=== PATIENT | female | born 1965 ===

== ENCOUNTER 2023-01-31 10:36 | Emergency (ER) | payer OTHER | END 2023-01-31 13:50 | disposition home or self-care (01) | LOC: ERS 10:36 | DX: H60.93 Unspecified otitis externa, bilateral (principal); H65.92 Unspecified nonsuppurative otitis media, left ear; H61.21 Impacted cerumen, right ear; I10 Essential (primary) hypertension; E11.9 Type 2 diabetes mellitus without complications; E78.5 Hyperlipidemia, unspecified; Z79.899 Other long term (current) drug therapy; Z79.84 Long term (current) use of oral hypoglycemic drugs | CPT/HCPCS: 99282 ==